=== PATIENT | male | born 1955 | race Caucasian/White ===

== ENCOUNTER → 2021-03-03 | Outpatient (CLI) | payer OTHER | LOC: M PLARAD 07:37 | PROVIDERS: ATTEND Physician Assistant | DX: R91.1 Solitary pulmonary nodule (principal) ==

== ENCOUNTER → 2021-04-27 | Outpatient (CLI) | payer OTHER ==
--- NOTE | 2021-04-30 10:04 | REP ---
INDICATION: DIAGNOSING SOLITARY PULMONARY LONG NODULE R91.1. COMPARISON: Report was delayed pending retrieval of [facility] CT study images from January 21, 2021... TECHNIQUE: Eighty-seven minutes following the intravenous injection of a 9.20 mCi dose of F-18 FDG, three-dimensional PET scintigraphy is acquired from the skull base to the proximal thighs. Triplanar noncontrast CT scanning is acquired through the same anatomic range for attenuation correction, and image registration with scan parameters optimized to minimize radiation exposure to the patient. PET scintigraphy and CT datasets were fused and displayed on a workstation with multiplanar and projection display capability. FINDINGS: Head and neck soft tissues are unremarkable. There is arthropathy associated uptake in the left shoulder. There is some motion generated misregistration artifact at the level of the skull due to patient movement. There is no abnormal hypermetabolic uptake within the thorax. There is artifactual uptake along the anterior arch of the ascending aorta associated with a surgical clip or calcification. The patient is status post median sternotomy and I suspect bypass grafting. On lung window settings, there is no abnormal hypermetabolic pulmonary parenchymal uptake. No significant pulmonary nodule is appreciated. There is linear platelike atelectasis or scarring in the left base. On review of the prior CT study there is a vague 5-6 mm non solid density in the right perihilar region on page 49 of 117 in series 3 of that prior exam. On coronal and sagittal MPR images, this appears to be a benign perifissural nodule. In any event, no suspicious pulmonary parenchymal uptake is seen today. In the abdomen and pelvis, normal hepatic, splenic, gastrointestinal, and genitourinary FDG accumulation is seen. No abnormal hypermetabolic uptake is seen in the abdomen or pelvis. No abnormal skeletal hypermetabolic uptake is appreciated. IMPRESSION: Negative PET scintigraphy. CT follow-up suggested. <Electronically signed by Brent Bailon > 04/30/21 1000
== END ==
LOC: M PLARAD 07:39
PROVIDERS: ATTEND Physician Assistant
DX: R91.1 Solitary pulmonary nodule (principal)
CPT/HCPCS: 78815; A9552